=== PATIENT | male | born 1955 | race African-American/Black ===

== ENCOUNTER 2019-11-25 18:26 | Inpatient (IN) | payer BC, OTHER ==
[~2019-11-25] VITALS: Ht 170.2 cm; Wt 68.0 kg
--- NOTE | ~2019-11-25 | HC ---
[facility] [place] [address] CONSULTATION Name: ANUPAM STAHL Room #: [facility] IN M.R.#: [id number] Admission: 11/25/19 Attend Phys: Cecilia Hernández Discharge: Date of : [birth year] Report #: [id number] THIS REPORT FOR: cc: [facility] - Clinic physician unknown [facility] - Clinic physician unknown Vin Redding MD ~ CC: [facility] unknown Cecilia Hernández DATE OF SERVICE: 11/25/2019 HISTORY OF PRESENT ILLNESS: This 67-year-old male patient has not seen a doctor for a long time. He was admitted with right-sided weakness and some speech difficulty. It started 2-3 days ago. He did not become any better, so he came to the hospital. He does not think he is any worse. In the Emergency Room, they did a CT scan of the head, which appeared to be demonstrating old lacunar infarct, but nothing which is acute. REVIEW OF SYSTEMS: It is difficult to tell review of systems because this patient has not seen a doctor for a long time. There is no other history like respiratory difficulty, chest pain, GI, , musculoskeletal, constitutional, dermatological, hematological, psychiatric, throat symptom associated with present symptomatology. PAST MEDICAL HISTORY: Negative for stroke. FAMILY HISTORY: Unremarkable. SOCIAL HISTORY: He smokes, but he says he drinks alcohol very little. PHYSICAL EXAMINATION: Indicate he is alert. He is responsive. His speech looks fairly well. His memory looks intact. Cranial nerve examination 2-12 looks mostly unremarkable. The best I can tell on my examination is not markedly weak on the right side as compared to the left side. His position sense is intact on both sides and tone looks unremarkable. He does not look ataxic. He is a pretty well-built individual. He does not appear to be in any respiratory difficulty. His cardiac examinations appear unremarkable. His pulses are palpable. He has no edema, cyanosis or jaundice. His hearing and vision looks adequate. When he came in, his blood pressure was 248/119 and now is running about 190. He does not appear to have any hypertensive encephalopathy at the moment. LABORATORY DATA: His white count is trace high at 13.2. His creatinine is a trace high at 1.4. His BUN is normal. His CT angiogram was done, I had recommended that if BUN and creatinine is normal, but his creatinine was 1.4, which is slightly abnormal. Because of that, I will give him some fluids and [facility] [address] [place] [address] CONSULTATION Name: ANUPAM STAHL Room #: 211-P ADM IN M.R.#: [id number] Admission: 11/25/19 Attend Phys: Cecilia Hernández Discharge: Date of : [birth year] Report #: [id number] looks like he was given 500 mL of fluid in the Emergency Room and he is going to be on 75 mL of normal saline and I think that should be adequate and we can check BUN and creatinine again tomorrow. IMPRESSION: The patient's history is suggestive of lacunar cerebrovascular accident. He has evidence of old cerebrovascular accident, but he does not have any evidence for new cerebrovascular accident, but CT scan can miss recent cerebrovascular accident. RECOMMENDATIONS: We will await the CT angiogram report. Presently, I will suggest keeping his blood pressure between 180-200. This is because he probably has this high blood pressure of 240 for a long time and his intracranial circulation is used to that high blood pressure. It will be desirable to lower it slowly. Further parameter can be decided after the CT angiogram is available. Once that is available, I asked them to call me and I can give further instruction to see what we need to be done. Thank you very much for this referral. By: [id number] Vin Redding MD /nt
[2019-11-25 18:27] VITALS: BP 248/119
[2019-11-25 18:46] LABS: ABSOLUTE NEUTROPHILS 8.7 thou/uL (1.4-8.2); BASOPHILS 0.7 % (0.0-2.0); EOSINOPHILS 1.3 % (0.0-3.0); HEMATOCRIT 42.4 % (42.0-52.0); HEMOGLOBIN 13.9 gm/dL (14.0-18.0); LYMPHOCYTES 26.5 % (24.0-44.0); MCH 30.3 pg (26.0-34.0); MCHC 32.8 g/dL (28.0-37.0); MCV 92.4 fL (80.0-100.0); MONOCYTES 6.2 % (1.0-8.0); PLATELET COUNT 270 thou/uL (150-400); POLYS 65.3 % (36.0-66.0); RBC 4.58 mil/uL (4.50-6.00); RDW 13.4 % (10.5-14.5); WBC 13.2 thou/uL (4.0-11.0)
[2019-11-25 18:55] LABS: APTT 24.8 Seconds (24.5-32.8); PROTIME 10.5 Seconds (9.3-11.4)
[2019-11-25 19:05] LABS: ANION GAP 7 mmol/L (7-16); BUN 15 mg/dL (7-18); CALCIUM 8.7 mg/dL (8.5-10.1); CHLORIDE 108 mmol/L (98-107); CO2 27 mmol/L (21-32); CREATININE 1.4 mg/dL (0.7-1.3); GLUCOSE 124 mg/dL (74-106); POTASSIUM 3.9 mmol/L (3.5-5.1); SODIUM 142 mmol/L (136-145)
[2019-11-25 19:15] LABS: ALBUMIN 3.4 g/dL (3.4-5.0); SGOT 14 U/L (15-37); SGPT 14 U/L (30-65); TOTAL BILIRUBIN 0.5 mg/dL (0.2-1.0); TOTAL PROTEIN 7.9 g/dL (6.4-8.2); TROPONIN-I <0.06 ng/mL (<0.06)
[2019-11-25 20:29] VITALS: BP 181/83
--- NOTE | 2019-11-25 20:34 | NUR ---
ATTEMPTED TO CALL REPORT "CAN WE CALL YOU BACK, I NEED TO SPEAK TO THE CHARGE NURSE.
[2019-11-25 20:57] VITALS: BP 181/83
[2019-11-25 21:24] LABS: CHOLESTEROL 166 mg/dL (<200); HDL CHOLESTEROL 36 mg/dL (>40); LDL CHOLESTEROL 112 mg/dL (<100); TC:HDL 4.6 Ratio (Not establshd); TRIGLYCERIDE 90 mg/dL (<150); VLDL 18 mg/dL (<40)
[2019-11-25 21:30] VITALS: BP 193/98
[2019-11-25 21:31] LABS: SERUM ASSESSMENT N
[2019-11-26] VITALS (7 sets, daily range): BP systolic 165–212; BP diastolic 74–107
--- NOTE | 2019-11-26 00:29 | NUR ---
PATIENT ARRIVED VIA CART FROM THE ED TO ROOM 211 AT 5. ALERT AND ORIENTED X4. UP WITH ONE ASSIST, HOWEVER, WILL REMAIN BR UNTIL PT ASSESSMENT. DENIES PAIN. SCD'S PLACED AND MEDS GIVEN IV PER JUN. ELEVATED BP MONITORED PER ORDER. PATIENT PLEASANT AND COOPERATIVE. WILL MONITOR.
[2019-11-26 05:11] LABS: HEMATOCRIT 39.2 % (42.0-52.0); HEMOGLOBIN 12.7 gm/dL (14.0-18.0); MCHC 32.4 g/dL (28.0-37.0); MCV 92.5 fL (80.0-100.0); RBC 4.24 mil/uL (4.50-6.00); RDW 13.5 % (10.5-14.5); WBC 11.6 thou/uL (4.0-11.0)
--- NOTE | 2019-11-26 05:17 | NUR ---
PATIENT ALERT AND ORIENTED X4. NIH PERFORMED IN ED AND ON THE FLOOR [id number]. NS @ 75 INFUSING W/O COMPLICATION. CONTINUES TO DENY PAIN. TOLERATING NPO STATUS. BP ELEVATED, HOWEVER, DOWN WITH PRN MEDICATION. DR. JOHNSON IN DURING THE NIGHT TO EVALUATE PATIENT (NEURO). IN ED PATIENT HAD CT OF HEAD AND NECK ALSO AN ECHO. RESTING QUIETLY. WILL MONITOR.
[2019-11-26 05:46] LABS: CALCIUM 8.3 mg/dL (8.5-10.1); CREATININE 1.2 mg/dL (0.7-1.3); MAGNESIUM 1.9 mg/dL (1.8-2.4); POTASSIUM 3.6 mmol/L (3.5-5.1)
--- NOTE | 2019-11-26 16:32 | NUR ---
ASSESSMENT CHARTED - MEDS PER JUN - CHANGED FOR IV TO PO MEDS THIS SHIFT. PT STARTED ON PLAVIX. PT WITH ARMS AND LEGS WITH NO DROOPING. SMILE EQUAL, ABLE TO TRACK WITH EYES AND PERIPHERAL VISION INTACT. AMBULATED IN THE ROOM TO THE BATHROOOM, SLIGHTLY UNSTEADY ON FEET DAUGHTER STATED THAT THIS WAS NORMAL. IV FLUIDS TURNED OFF ORDERED. STARTED ON HEART HEALTHY DIET WITH NO EVIDIENCE OF SWALLOWING DIFFICULTY. NO CO'S AT THE PRESENT TIME. APPEARS TO BE RESTING COMFORTBLY.
[2019-11-27] VITALS (7 sets, daily range): BP systolic 155–197; BP diastolic 92–107
[2019-11-27 03:06] LABS: GLYCOHEMOGLOBIN (HGB A1C) 4.9 % (4.8-5.6)
--- NOTE | 2019-11-27 05:00 | NUR ---
ASSUMED CARE OF PT FROM DAY SHIFT PT RESTING IN BED NIH =0 SPEECH REMAIN CLEAR , BRANCH LENDING OFFICER SHOWS NSR, BP 176/78. PO MEDICATION TAKEN. QUEWSTIONAIRE COMPLETED FOR MRI. PT RESTED WELL THROUHGOUT HOURLY ROUNDS. WILL CONNITUE WITH POC, AND WILL REPORT CHANGES.
--- NOTE | 2019-11-27 08:31 | EKG ---
[facility] [place] [address] [address] ELECTROCARDIOGRAM REPORT Name: ANUPAM STAHL Room #: 211-P ADM IN M.R.#: [id number] Admission: 11/25/19 Attend Phys: Cecilia Hernández Discharge: Date of : 59 Report #: [id number] THIS REPORT FOR: cc: [facility] - Clinic physician unknown [facility] - Clinic physician unknown Festus Villalpando MD [facility] ~ THIS REPORT FOR: //name// 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
--- NOTE | 2019-11-27 11:32 | 2DMMODE ---
[facility] [address] [place] [address] 2 D/M-MODE ECHOCARDIOGRAM Name: ANUPAM STAHL Room #: 211-P ADM IN M.R.#: [id number] Admission: 11/25/19 Attend Phys: Cecilia Hernández Discharge: Date of : [birth year] Report #: [id number] THIS REPORT FOR: cc: [facility] - Clinic physician unknown [facility] - Clinic physician unknown Jf Hector MD ~ APPROVED REPORT Study performed: 11/27/2019 10:14:09 EXAM: Comprehensive 2D, Doppler, and color-flow Echocardiogram Patient Location: Bedside Room #: 211 Status: routine BSA: 1.78 HR: 59 bpm BP: 190/106 mmHg Rhythm: Bradycardia Other Information Study Quality: Good Indications CVA/TIA Hypertension/HDD Echo Enhancing Agent Indication: Rule out Shunt Agent(s) / Amount(s) Used: Agitated Saline 7 cc 2D Dimensions RVDd: 31.79 mm IVSd: 10.72 (7-11mm) LVOT Diam: 21.36 (18-24mm) LVDd: 54.24 mm PWd: 10.72 (7-11mm) Ascending Ao: 28.01 (22-36mm) LVDs: 36.84 (25-40mm) Aortic Root: 30.02 mm IVC: 15.00 mm Volumes Left Atrial Volume (Systole) Single Plane 4CH: 54.08 mL Single Plane 2CH: 47.42 mL LA ESV Index: 31.00 mL/m2 Aortic Valve [facility] [address] [place] [address] 2 D/M-MODE ECHOCARDIOGRAM Name: ANUPAM STAHL Room #: 211-P [facility] IN M.R.#: [id number] Admission: 11/25/19 Attend Phys: Cecilia Melton Discharge: Date of : 59 Report #: [id number] Peak Rory.: 1.38 m/s AO Peak Gr.: 7.57 mmHg LVOT Max P.90 mmHg LVOT Max V: 0.99 m/s RALPH Vmax: 2.57 cm2 Mitral Valve E/A Ratio: 0.7 MV Decel. Time: 254.15 ms MV E Max Rory.: 0.55 m/s MV A Rory.: 0.78 m/s MV PHT: 73.70 ms IVRT: 110.73 ms Pulmonary Valve PV Peak Rory.: 1.06 m/s PV Peak Gr.: 4.50 mmHg Pulmonary Vein P Vein S: 0.57 m/s P Vein A: 0.28 m/s P Vein D: 0.42 m/s P Vein A Dur.: 115.3 msec P Vein S/D Ratio: 1.36 Tricuspid Valve TR Peak Rory.: 2.53 m/s TR Peak Gr.: 25.68 mmHg PA Pressure: 30.00 mmHg Left Ventricle The left ventricle is normal size. There is normal LV segmental wall motion. There is normal left ventricular wall thickness. The left ventricular systolic function is normal. The left ventricular ejection fraction is within the normal range. LVEF is 55-60%. Grade I - abnormal relaxation pattern. Right Ventricle The right ventricle is normal size. The right ventricular systolic function is normal. Atria The left atrium size is normal. Interatrial septum is intact without evidence of ASD or PFO. The right atrium size is normal. Aortic Valve The aortic valve is normal in structure. No aortic regurgitation is present. There is no aortic valvular stenosis. Mitral Valve [facility] [address] [place] [address] 2 D/M-MODE ECHOCARDIOGRAM Name: FAVIOANUPAM SHA Room #: 211-P [facility] IN ..#: [id number] Admission: 11/25/19 Attend Phys: Cecilia Melton Discharge: Date of : 59 Report #: [id number] The mitral valve is normal in structure. There is no mitral valve regurgitation noted. No evidence of mitral valve stenosis. Tricuspid Valve The tricuspid valve is normal in structure. There is trace tricuspid regurgitation. Estimated PAP 30 mmHg. There is no pulmonary hypertension. Pulmonic Valve The pulmonary valve is normal in structure. There is no pulmonic valvular regurgitation. Great Vessels The aortic root is normal in size. IVC is normal in size and collapses >50% with inspiration. Pericardium There is no pericardial effusion. <Conclusion> The left ventricle is normal size. LVEF is 55-60%. The aortic valve is normal in structure. The mitral valve is normal in structure. The tricuspid valve is normal in structure. There is trace tricuspid regurgitation. Estimated PAP 30 mmHg. There is no pulmonary hypertension. The pulmonary valve is normal in structure. There is no pericardial effusion. Interatrial septum is intact without evidence of ASD or PFO. <ELECTRONICALLY SIGNED> By: Jf Hector MD 11/27/19 1131 1131 113 Jf Hector MD /INF
[2019-11-27] MEDS ORDERED: ATORVASTATIN CA10 MG PO (11:48)
[2019-11-27] MEDS ORDERED: CLOPIDOGREL75 MG PO (11:48)
[2019-11-27] MEDS ORDERED: ASPIRIN325 PO (11:49)
[2019-11-27] MEDS ORDERED: NORVASC10 MG PO (11:49)
--- NOTE | 2019-11-27 15:02 | NUR ---
met with patient who resides with in 2 story home. [employer] independenet with adls. Patient to discharge today and rec orders for HH care. Patient reports he does not have a PCP and to call dtr regarding HH care. Sp with dtr. She reports she is planning to establish PCP and aware no phys. She reports her stepmother will be avail to assist at home. She requests possible out patient therapy for patient. Reqested scripts for outpatient.
[2019-11-27] MEDS ORDERED: [UNRECOGNIZED DRUG - REMARK] ×2 (15:10→15:19)
--- NOTE | 2019-11-27 18:00 | NUR ---
ASSUMMED PT CARE AT APPROXIMATELY 0700. PT A&O X4. ASSESSMENT CHARTED. FALL PRECAUTIONS IN PLACE. PT DENIES HAVING SOB. PT DENIES HAVING ACUTE PAIN. PT DENIES HAVING CHEST PAIN. EDUCATED PT ABOUT PT'S FAMILY ABOUT POC. PT AND PT'S FAMILY STATED UNDERSTANDING AND DENIED HAVING FURTHER CONCERNS. INFORMED DR. JOHNSON AND DR. MI OF PT'S MRI RESULTS. STATED UNDERSTANDING AND ENTERED NEW ORDERS. NEW ORDERS IMPLEMENTED. NIH INTERVENTION. PT COMFORTABLE IN BED. PT DENIES HAVING FURTHER CONCERNS. MONITORING BLOOD PRESSURE PER DR. JOHNSON'S RAGE. VITAL SIGNS STABLE. PT AMBULATES STEADY.
[2019-11-28 00:45] VITALS: BP 149/97
[2019-11-28 04:00] VITALS: BP 126/81
--- NOTE | 2019-11-28 04:41 | NUR ---
ASSUMED PT CARE AROUND 193. AXOX4. INDEPENDENT WITH ADLs. HYPERTENSION MANAGED PER MD ORDER. NO ACUTE CHANGES IN NEUROLOGIC STATUS. NO S/S ACUTE DISTRESS NOTED OR REPORTED AT THIS TIME. WILL CONT TO MONITOR FOR ANY CHANGES IN CONDITION.
[2019-11-28 07:30] VITALS: BP 158/103
[2019-11-28 10:17] VITALS: BP 158/103
[2019-11-28 11:20] VITALS: BP 158/103
--- NOTE | 2019-11-28 11:21 | NUR ---
ASSUMED CARE OF PT AT SHIFT CHANGE. ASSESSMENTS CHARTED. MEDS GIVEN PER JUN. PT A&OX4, NO C/O PAIN OR DISTRESS. NO DEFICITS NOTED. DISCHARGE ORDERS AND INSTRUCTIONS COMPLETE. TELE AND IV DC'D. PT TAKEN OUR VIA WHEELCHAIR BY THIS NURSE TO ER ENTRANCE TO WAITING SPOUSE IN CAR.
== END 2019-11-28 10:44 | disposition home or self-care (01) | DRG 65 ==
LOC: ER 18:26 → 2N 20:02 → EROBS 20:02 → EDBD 20:02 → 2N 20:55
PROVIDERS: Emergency Medicine; Nurse Practitioner Family; ADMIT Hospitalist; ATTEND Hospitalist
DX: I63.89 Other cerebral infarction (principal); N17.9 Acute kidney failure, unspecified; F17.210 Nicotine dependence, cigarettes, uncomplicated; I10 Essential (primary) hypertension; E01.0 Iodine-deficiency related diffuse (endemic) goiter; Z71.6 Tobacco abuse counseling; I16.0 Hypertensive urgency; Z80.3 Family history of malignant neoplasm of breast; Z79.899 Other long term (current) drug therapy
CPT/HCPCS: 10081

== ENCOUNTER → 2019-12-22 | Outpatient (CLI) | payer BC, OTHER ==
[~2019-12-22] MED LIST: ASPIRIN325 PO; ATORVASTATIN CA10 MG PO; CLOPIDOGREL75 MG PO; NORVASC10 MG PO; [UNRECOGNIZED DRUG - REMARK]
== END ==
LOC: ULTRA 12:46
PROVIDERS: ATTEND Otolaryngology Plastic Surgery within the Head & Neck
DX: E04.2 Nontoxic multinodular goiter (principal)